=== PATIENT | female | born 1960 | race Caucasian/White ===

== ENCOUNTER 2023-07-13 20:44 | Emergency (ER) | payer OTHER, SELFPAY ==
[2023-07-13 20:47] VITALS: BP 137/95
[2023-07-13 21:04] LABS: % Basophils 0.9 % (0-2); % Eosinophils 1.3 % (0-6); % Immature Granulocytes 0.4 % (0-0.5); % Lymphocytes 19.6 % (20.5-51.1); % Monocytes 6.3 % (1.7-9.3); % Neutrophils 71.5 % (42.2-75.2); Absolute Basophils 0.1 10^3/uL (0-0.2); Absolute Eosinophils 0.1 10^3/uL (0-0.7); Absolute Lymphocytes 1.3 10^3/uL (1.2-3.4); Absolute Monocytes 0.4 10^3/uL (0.1-0.6); Absolute Neutrophils 4.8 10^3/uL (1.4-6.5); Hematocrit 40.1 % (37.0-47.0); Mean Corp Hgb Conc. 34.9 g/dL (33.0-37.0); Mean Corpuscular Volume 88.9 fL (81.0-99.0); Mean Platelet Volume 9.9 fL (7.4-10.4); Nucleated Red Blood Cells % 0 %; Platelet Count 323 10^3/uL (130-400); Red Blood Cell Count 4.51 10^6/uL (4.20-5.40); Red Cell Dist. Width 13.4 % (11.5-14.5); White Blood Cell Count 6.7 10^3/uL (4.8-10.8)
[2023-07-13 21:05] LABS: Urine Albumin Negative (Neg - Trace); Urine Bilirubin Negative (Negative); Urine Character Clear (Clear); Urine Color Straw; Urine Glucose Negative (Negative); Urine Ketone Negative (Negative); Urine Leukocyte 2+ (Negative); Urine Nitrite Negative (Negative); Urine Occult Blood Negative (Negative); Urine Specific Gravity 1.005 (<1.030); Urine Urobilinogen Negative (Neg - 1+); Urine pH 6.5 (5.0-9.0)
[2023-07-13 21:13] LABS: Urine Red Blood Cell None Seen /HPF (0-2)
[2023-07-13 21:33] LABS: ALT (SGPT) 29 U/L (0-35); AST (SGOT) 31 U/L (14-36); Albumin 5.1 g/dl (3.5-5.0); Alkaline Phosphatase 95 U/L (38-126); Blood Urea Nitrogen 18 mg/dl (7-17); Calcium 9.9 mg/dl (8.4-10.2); Carbon Dioxide 24 mmol/L (22-30); Chloride 106 mmol/L (98-107); Glucose 102 mg/dl (70-99); Lipase 125 U/L (23-300); Potassium 4.5 mmol/L (3.5-5.1); Sodium 138 mmol/L (135-145); Total Bilirubin 0.6 mg/dl (0.2-1.3); Total Protein 7.4 g/dl (6.3-8.2); eGFR > 60.00
--- NOTE | 2023-07-14 00:42 | ED.GENMED ---
History of Present Illness
General
Chief Complaint: Abdominal Symptoms
Source: patient and spouse
Exam Limitations: none
Time Seen by Provider: 07/14/23 00:31
Nursing documentation reviewed up to this point in time: agreed with
Travel History
Have you had any contact with someone who has COVID-19?: No
Do you have any symptoms of coronavirus? Fever > 100 degrees, chills, cough, shortness of breath, sore throat, loss of taste or smell, muscle aches, or headache?: No
History of Present Illness
History of Present Illness:
Patient is a 62-year-old female who presents to the emergency department complaining of severe left back and flank pain radiating into the left abdomen started couple weeks ago but became severe today while flying back from [place]. Patient became
chilled and diaphoretic at 1 point with nausea but did not vomit. Pain is somewhat improved at this point. Patient had diverticulitis in the past. Patient did become lightheaded today. Patient denies any dysuria, hematuria, urgency or frequency.
Patient denies any diarrhea or constipation. Patient denies any history of kidney stones. Patient denies any recent illnesses or injuries.
Past History
Past History
ED Past Medical History: Other (Diverticulitis )
ED Past Surgical History: Orthopedic
Social History
Tobacco: Non-smoker
Review of Systems
Review of Systems
All Other Systems: ROS reviewed and negative except as documented in HPI and ROS
Constitutional: Reports fatigue and chills; Denies fever
EENT: Reports no symptoms
Cardiac: Reports no symptoms
ABD/GI: Reports abdominal pain and nausea; Denies vomiting, diarrhea or constipated
: Reports flank pain; Denies dysuria, frequency, urgency, bleeding or dark urine
Musculoskeletal: Reports back pain
Skin: Reports no symptoms
Neurological: Reports no symptoms
Hematologic/Lymphatic: Reports no symptoms
Phy Exam
Physical Exam
Physical Exam:
Physical Exam
General: mild distress, alert and appropriate, well nourished, well hydrated
HENT: Normocephalic, supple with no lymphadenopathy, no thyromegaly
Eyes: Clear sclera, conjuctiva without injection
Heart: Regular rhythm and rate. No S3, S4. No murmur.
Lungs: No respiratory distress, no stridor, lung sounds clear and equal bilaterally
Abdomen: Soft, nontender, no organomegaly, left CVA tenderness, BS good
Neuro: Alert and oriented x 3, CN II - XII intact, no motor focality, no cerebellar dysfunction
Skin: no rash
Psychiatric: well kept. interactive and cooperative
Extremities: No edema, cyanosis, tenderness, Good and equal peripheral pulses.
Course
Orders/Labs/Results
Orders:
Orders
07/13/23 20:58
Complete Blood Count/With Diff Urgent
Comprehensive Metabolic Panel Urgent
Lipase Urgent
Urinalysis Reflex To Culture Urgent
Date Specimen was Collected: 07/13/23
Time Specimen was Collected: 20:51
Urine Microscopic Reflex Cult Urgent
Urine Culture Urgent
CROW Source: U
Specimen Description:
Date Specimen was Collected: 07/13/23
Time Specimen was Collected: 20:51
07/14/23 00:41
CT Abd/pel Without Iv Or Oral Urgent
Comment:
Reason For Exam: Left flank pain
0.9% Sodium Chloride 1000 ml [Nss] 1,000 ml IV BOLUS
HYDROmorphone [Dilaudid] 0.5 mg IV NOW STA
Ketorolac [Toradol] 15 mg IV NOW STA
Ondansetron Injectable [Zofran] 4 mg IV NOW STA
Abnormal Lab Results
07/13/23
20:58
Lymphocytes % 19.6 L %
(20.5-51.1)
BUN 18 H mg/dl
(7-17)
Glucose 102 H mg/dl
(70-99)
Albumin 5.1 H g/dl
(3.5-5.0)
Leukocyte Esterase Rfl 2+ A
(Negative)
Urine WBC (Reflex) 11-15 A /HPF
(0-5)
07/13/23 20:58
07/13/23 20:58
Vital Signs
Initial and Last Documented VS:
Initial Vital Signs
Temp Pulse Resp BP Pulse Ox
98.1 F 74 16 137/95 98
07/13/23 20:47 07/13/23 20:47 07/13/23 20:47 07/13/23 20:47 07/13/23 20:47
Last Documented Vital Signs
Temp Pulse Resp BP Pulse Ox
98.1 F 74 16 137/95 98
07/13/23 20:47 07/13/23 20:47 07/13/23 20:47 07/13/23 20:47 07/13/23 20:47
*Radiology
Radiology exam reviewed: radiology read reviewed (Nephrolithiasis without obstruction)
*Pulse Oximetry
Patient hypoxic: no
*EKG
Interpreted by ED Provider?: NA
*Weight Engineer Interpretation
Rate: Weight Engineer- N/A
*Critical Care Note
Total Time (30-74mins, 75-104mins- exclusive of procedures): Not Applicable
Update Note
Update Note:
Patient is feeling better at this time. Believe the patient did have renal colic. Patient has a new family practice physician and will refer to urology as well.
ED Attending Note
-
Portions of this chart may have been created with voice recognition software.� Occasional wrong word or��sound alike� substitutions may have occurred due to the inherent limitations of voice recognition software.
Discharge Plan
Departure
Patient Disposition: Home (Routine Discharge)
Date of Disposition: 07/14/23
Time of Disposition: 03:12
Patient with high blood pressure during this ER visit?: No
Condition: Fair
Covid-19: Not Applicable
Discharge Problem:
Renal colic on left side, Bilateral nephrolithiasis
Instructions: Renal Colic (DC), Kidney Stone, Adult ED
Prescriptions:
New
ketorolac 10 mg tablet
10 mg PO QID PRN (Reason: pain) Qty: 20 0RF
Referrals:
Feliberto Felder MD [Active] - Call in 1-3 days for appt
Jamie Burgess DO [Family Provider] - Follow up in 5-7 days
Interventions
Interventions:
*ED COVID-19 Vaccine History Last Done: 07/13/23 20:47
Discharge Date and Time
Print Language: KAZAKH
[2023-07-14 01:16] VITALS: BP 148/81
[2023-07-14 01:22] VITALS: BMI 25.1
[2023-07-14] MEDS: TORADOL 15 MG IV (01:22)
[2023-07-14] MEDS: ZOFRAN 4 MG IV (01:22)
[2023-07-14] MEDS: DILAUDID 0.5 MG IV (01:23)
[2023-07-14] MEDS: NSS 1000 IV (01:23)
[2023-07-14 02:00] VITALS: BP 147/81
[2023-07-14 03:00] VITALS: BP 145/80
== END 2023-07-14 03:29 | disposition home or self-care (01) ==
LOC: EMR 20:44
PROVIDERS: EMERGENCY PHYSICIAN Emergency Medicine; FAMILY PHYSICIAN Family Medicine
DX: N23 Unspecified renal colic (principal); N20.0 Calculus of kidney
CPT/HCPCS: 99284; 96374; 96375 ×2; 96361; 74176; 80053; 81003; 81015; 83690; 85025; 87086